=== PATIENT | female | born 1990 | race African-American/Black ===

== ENCOUNTER 2018-04-10 13:08 | Emergency (ER) | payer OTHER ==
[~2018-04-10] VITALS: Ht 157.5 cm; Wt 63.5 kg
[2018-04-10 13:21] VITALS: BP 106/66
--- NOTE | 2018-04-10 14:14 | Emergency Room Report ---
History of Present Illness General Chief Complaint: Pain Source: Patient Present Illness HPI 27-year-old female with significant past medical history of cigarette smoking who is A1, here complaining of 3 days of left-sided abdominal and pelvic pain radiating to her rectum and suprapubic area. Patient reports she had one episode of mild diarrhea 5 days ago denying nausea or vomiting, traveling outside the [place], and any blood in the stool. Her LMP was April 03 and regular patient is sexually active with 1 male partner not using condoms and on no control methods. She also complains of minor vaginal spotting however that has been resolved for the past 5 days. Denies vaginal ulcers, pruritus, pain, and denies abnormal vaginal discharge. Patient complains of dysuria denies hematuria. She reports that today her pain is intermittent and 5 out of 10 in the left lower quadrant pain. She has history of one selective denying spontaneous or ectopic in the past. Denies chest pain, SOB, chest pain, palpitaiton and all other associated symptoms. Allergies: Coded Allergies: No Known Allergies (Unverified , 04/10/18) Patient History Past Medical History: see triage record Past Surgical History: none Pertinent Family History: unable to obtain Now: No Immunizations: UTD Reviewed Nursing Documentation: PMH: Agreed; PSxH: Agreed Nursing Documentation-PMH Past Medical History: No Stated History Review of Systems All Other Systems: negative except mentioned in HPI Physical Exam Vital Signs Date Time Temp Pulse Resp B/P (MAP) Pulse Ox O2 Delivery O2 Flow Rate FiO2 04/10/18 13:14 98.2 103 18 106/66 98 Room Air Sp02 EP Interpretation: reviewed, normal General Appearance: normal inspection, well appearing, no apparent distress, GCS 15 Head: normocephalic, atraumatic Eyes: bilateral eye normal inspection, bilateral eye PERRL ENT: normal ENT inspection, hearing grossly normal, normal pharynx Neck: normal inspection, full range of motion, supple Respiratory: normal inspection, chest non-tender, lungs clear, no rhonchi, no retraction, no wheezing Cardiovascular #1: normal inspection, no edema, no gallop, no JVD, no murmur Gastrointestinal: normal bowel sounds, no mass, no peritonitis, no bruit, no guarding, tenderness - LLQ Genitourinary: no CVA tenderness Musculoskeletal: normal inspection, back normal, digits/nails normal, gait/ station normal, normal range of motion Neurologic: normal inspection, alert, oriented x3, responsive, talent development manager III-XII nml as tested Psychiatric: normal inspection, judgement/insight normal, memory normal Skin: normal inspection, normal color, no rash, warm/dry Lymphatic: normal inspection, no adenopathy, axilla node tender (R) Medical Decision Making PA Attestation all diagnosis and treatment plans were reviewed and discussed with my supervising physician Dr. Verde Diagnostic Impression: Primary Impression: UTI (urinary tract infection) Additional Impression: Appendicitis ER Course 27-year-old female with significant past medical history of cigarette smoking who is A1, here complaining of 3 days of left-sided abdominal and pelvic pain radiating to her rectum and suprapubic area. Patient reports she had one episode of mild diarrhea 5 days ago denying nausea or vomiting, traveling outside the [place], and any blood in the stool. Her LMP was April 03 and regular patient is sexually active with 1 male partner not using condoms and on no control methods. She also complains of minor vaginal spotting however that has been resolved for the past 5 days. Denies vaginal ulcers, pruritus, pain, and denies abnormal vaginal discharge. Patient complains of dysuria denies hematuria. She reports that today her pain is intermittent and 5 out of 10 in the left lower quadrant pain. She has history of one selective denying spontaneous or ectopic in the past. Denies chest pain, SOB, chest pain, palpitaiton and all other associated symptoms. Ddx considered but are not limited to ectopic , diverticulitis, ovarian cyst, peritonitis ,appendicitis Vital signs: are WNL, pt. is afebrile H&PE are most consistent with appendicitis UTI ORDERS: UA, urine test, abdominal and pelvic CT noncontrast, pelvic US , ED INTERVENTIONS: None required at this time. DISCHARGE: At this time pt. is stable for d/c to home. Will provide printed patient care instructions, and any necessary prescriptions. Care plan and follow up instructions have been discussed with the patient prior to discharge. pt refuses to be seen by Gen Surg as she wants to go home and do her paper for school. she wants to return to ED in 20-30 hrs. she understands the risks of leaving with inflamed appendix and understands taking abx for UTI can mask symptoms of appendicitis. pt signs AMA urine preg neg, leuk pos, blood in UA. CT/MRI/US Diagnostic Results CT/MRI/US Diagnostic Results : Imaging Test Ordered: pelvic US and abdominal CT Impression Exam: US PELVIS Comparison: None available FINDINGS: The uterus measures 7 x 4.3 x 3 cm. 4 mm endometrial echo complex. Complex appearing 1.1 x 0.7 x 1 cm nabothian cyst. The right ovary measures 3.8 x 4.2 x 2.1 cm with a volume of 17 cc. The left ovary measures 4.3 x 3.2 x 1.9 cm with a volume of 13.9 cc. There is evidence of bilateral vascular ovarian flow seen. No evidence of adnexal mass. Suggestion of trace pelvic free fluid. IMPRESSION: Study appears within limits. Exam: CT ABDOMEN & PELVIS Without Contrast Technique more: CTDI is 10.85 mGy and DLP is 534 mGy-cm. Technique more: One or more of the following dose reduction techniques were used : automated exposure control, adjustment of the mA and/or kV according to patient size, use of iterative reconstruction technique. Comparison: None available FINDINGS: The lung bases are clear. Abdominal solid organs, gallbladder and abdominal aorta appear within limits on noncontrast imaging. No bowel dilation or free air. The appendix measures up to 7 mm which appears borderline in size with some adjacent fat stranding, edema for example axial 106 and 107 although there is additional diffuse appearing lower abdomen and pelvic fat stranding, edema. This may represent an inflammatory/infectious pelvic process, clinically correlate. Suggestion of trace pelvic free fluid. The ovaries, uterus and collapsed bladder appear unremarkable on noncontrast imaging. IMPRESSION: The appendix measures up to 7 mm which appears borderline in size with some adjacent fat stranding, edema for example axial 106 and 107 although there is additional diffuse appearing lower abdomen and pelvic fat stranding, edema. This may represent an inflammatory/infectious pelvic process, clinically correlate. Suggestion of trace pelvic free fluid. Radiologist: Ranjeet Zuluaga M.D. Electronically Signed: 04/10/18 15:40 Phone: [phone] Last Vital Signs Date Time Temp Pulse Resp B/P (MAP) Pulse Ox O2 Delivery O2 Flow Rate FiO2 04/10/18 13:14 98.2 103 18 106/66 98 Room Air Disposition: AGAINST MEDICAL ADVICE Condition: Stable Scripts Ciprofloxacin* (CIPRO*) 500 Mg Tablet 500 MG PO BID for 7 Days, #14 TAB Prov: Carlos Parikh 04/10/18 Patient Instructions: Acute Urinary Retention, Female, [id number], Appendicitis, [id number] Additional Instructions: return to the ER if nausea, vomiting, severe abdominal pain. leaving the hospital with appendicitis is not adviced. . He understands the risks of leaving the hospital without being seen and examined by a general surgeon, patient wants to return within the next 20-30 minutes. pt understands that abx for UTI can mask symptoms from appedicitis and peritonitis Carlos Parikh Apr 10, 2018 14:14
[2018-04-10 14:47] LABS: APPEARANCE,URINE CLEAR; BILIRUBIN, URINE NEGATIVE (NEGATIVE); GLUCOSE, URINE (UA) NEGATIVE (NEGATIVE); KETONES,URINE 1+ (NEGATIVE); LEUKOCYTE ESTERASE ,URINE 2+ (NEGATIVE); NITRITE,URINE NEGATIVE (NEGATIVE); PH,URINE 6 (4.5-8.0); PROTEIN,URINE 2+ (NEGATIVE); UROBILINOGEN,URINE 1 MG/DL (0.0-1.0)
[2018-04-10 14:58] LABS: COLOR,URINE YELLOW
--- NOTE | 2018-04-10 15:33 | Diagnostic Imaging Report ---
History: PAIN Exam: US PELVIS Comparison: None available FINDINGS: The uterus measures 7 x 4.3 x 3 cm. 4 mm endometrial echo complex. Complex appearing 1.1 x 0.7 x 1 cm nabothian cyst. The right ovary measures 3.8 x 4.2 x 2.1 cm with a volume of 17 cc. The left ovary measures 4.3 x 3.2 x 1.9 cm with a volume of 13.9 cc. There is evidence of bilateral vascular ovarian flow seen. No evidence of adnexal mass. Suggestion of trace pelvic free fluid. IMPRESSION: Study appears within limits. Suggestion of trace pelvic free fluid.
--- NOTE | 2018-04-10 15:40 | Diagnostic Imaging Report ---
History: PAIN Exam: CT ABDOMEN + PELVIS Without Contrast Technique more: CTDI is 10.85 mGy and DLP is 534 mGy-cm. Technique more: One or more of the following dose reduction techniques were used: automated exposure control, adjustment of the mA and/or kV according to patient size, use of iterative reconstruction technique. Comparison: None available FINDINGS: The lung bases are clear. Abdominal solid organs, gallbladder and abdominal aorta appear within limits on noncontrast imaging. No bowel dilation or free air. The appendix measures up to 7 mm which appears borderline in size with some adjacent fat stranding, edema for example axial 106 and 107 although there is additional diffuse appearing lower abdomen and pelvic fat stranding, edema. This may represent an inflammatory/infectious pelvic process, clinically correlate. Suggestion of trace pelvic free fluid. The ovaries, uterus and collapsed bladder appear unremarkable on noncontrast imaging. IMPRESSION: The appendix measures up to 7 mm which appears borderline in size with some adjacent fat stranding, edema for example axial 106 and 107 although there is additional diffuse appearing lower abdomen and pelvic fat stranding, edema. This may represent an inflammatory/infectious pelvic process, clinically correlate. Suggestion of trace pelvic free fluid.
[2018-04-10] MEDS ORDERED: CIPRO500 MG PO (16:08)
[2018-04-10 16:09] VITALS: BP 106/66
[2018-04-11] MEDS ORDERED: BACTRIM DS TAB1 EAC1 ORAL (14:07)
[2018-04-11] MEDS ORDERED: IBUPROFEN600 MG ORAL (14:07)
== END 2018-04-10 15:00 | disposition home or self-care (01) ==
LOC: EMR 13:45
DX: N39.0 Urinary tract infection, site not specified (principal); K37 Unspecified appendicitis; F17.210 Nicotine dependence, cigarettes, uncomplicated; R19.7 Diarrhea, unspecified
CPT/HCPCS: 74176; 76830; 76856; 81001; 81025; 87086; 99284

== ENCOUNTER 2018-04-11 12:39 | Emergency (ER) | payer OTHER ==
[~2018-04-11] VITALS: Ht 160 cm; Wt 63.5 kg
[~2018-04-11 12:39] MED LIST: CIPRO500 MG PO
--- NOTE | 2018-04-11 13:09 | Emergency Room Report ---
History of Present Illness General Chief Complaint: Abdominal Pain Source: Patient Present Illness [facility] Patient presents for continued evaluation She was here yesterday with CT imaging showing concerning findings of possible appendicitis Patient could not stay at this time and left AGAINST MEDICAL ADVICE And has returned reports of the pain is somewhat improved from previous however still present Points to the right lower quadrant Denies any vomiting or diarrhea patient reports that she had chips earlier today Denies any neck pain or photophobia denies any obvious fevers Allergies: Coded Allergies: No Known Allergies (Unverified , 04/10/18) Patient History Past Medical History: see triage record Pertinent Family History: none Last Menstrual Period: 04/03/18 Now: No Reviewed Nursing Documentation: PMH: Agreed; PSxH: Agreed Nursing Documentation-PMH Past Medical History: No History, Except For Review of Systems All Other Systems: negative except mentioned in HPI Physical Exam Vital Signs Date Time Temp Pulse Resp B/P (MAP) Pulse Ox O2 Delivery O2 Flow Rate FiO2 04/11/18 12:52 98.2 84 18 103/66 95 Room Air Sp02 EP Interpretation: reviewed, normal General Appearance: well appearing, no apparent distress Head: normocephalic, atraumatic Eyes: bilateral eye PERRL, bilateral eye EOMI ENT: hearing grossly normal, normal pharynx, TMs + canals normal, uvula midline Neck: full range of motion, supple, no meningismus, no bony tend Respiratory: lungs clear, normal breath sounds, no rhonchi, no respiratory distress, no retraction, no accessory muscle use Cardiovascular #1: normal peripheral pulses, regular rate, rhythm, no edema, no gallop, no JVD, no murmur Gastrointestinal: normal bowel sounds, soft, no mass, no organomegaly, non- distended, no guarding, no hernia, no pulsatile mass, no rebound, tenderness - Palpated right lower quadrant Genitourinary: no CVA tenderness Musculoskeletal: normal inspection Neurologic: oriented x3, responsive, pattern grader III-XII nml as tested, motor strength/ tone normal, sensory intact Psychiatric: mood/affect normal Skin: normal color, no rash, warm/dry, palpation normal Lymphatic: normal inspection, no adenopathy Medical Decision Making Diagnostic Impression: Primary Impression: Abdominal pain Qualified Codes: R10.30 - Lower abdominal pain, unspecified Additional Impression: UTI (urinary tract infection) ER Course With the patient's history and examination, multiple differentials considered, including but not limited to , ectopic , ovarian torsion, gastritis, cholecystitis, pancreatitis, appendicitis Patient's white blood cell count is 10.9 Patient had shown signs of UTI on previous visit Dr. Aviles at bedside and has consulted on the patient please for to his note for full specifics However at this time does not feel that the patient's findings are consistent with appendicitis Patient also reports that she feels mildly improved from yesterday Patient will have outpatient attempt And return with any changes in symptoms Labs Test 04/11/18 13:30 White Blood Count 10.9 K/UL (4.8-10.8) Red Blood Count 3.99 M/UL (4.20-5.40) Hemoglobin 13.4 G/DL (12.0-16.0) Hematocrit 39.3 % (37.0-47.0) Mean Corpuscular Volume 99 FL (80-99) Mean Corpuscular Hemoglobin 33.7 PG (27.0-31.0) Mean Corpuscular Hemoglobin Concent 34.1 G/DL (32.0-36.0) Red Cell Distribution Width 10.7 % (11.6-14.8) Platelet Count 261 K/UL (150-450) Mean Platelet Volume 5.7 FL (6.5-10.1) Neutrophils (%) (Auto) 72.2 % (45.0-75.0) Lymphocytes (%) (Auto) 22.2 % (20.0-45.0) Monocytes (%) (Auto) 4.5 % (1.0-10.0) Eosinophils (%) (Auto) 0.5 % (0.0-3.0) Basophils (%) (Auto) 0.6 % (0.0-2.0) Last Vital Signs Date Time Temp Pulse Resp B/P (MAP) Pulse Ox O2 Delivery O2 Flow Rate FiO2 04/11/18 12:52 98.2 84 18 103/66 95 Room Air Status: improved Disposition: HOME, SELF-CARE Condition: Improved Scripts Trimethoprim/Sulfamethoxazole 160/800* (BACTRIM DS TABLET*) 1 Each Tablet 1 TAB ORAL Q12H, #14 TAB 0 Refills Prov: Yoana Walton DO 04/11/18 Ibuprofen* (MOTRIN*) 600 Mg Tablet 600 MG ORAL Q8H PRN for For Pain, #20 TAB 0 Refills Prov: Yoana Walton DO 04/11/18 Additional Instructions: Patient is provided with the discharge instructions notified to follow up with primary doctor in the next 2-3 days otherwise return to the er with any worsening symptoms. Please note that this report is being documented using DRAGON technology. This can lead to erroneous entry secondary to incorrect interpretation by the dictating instrument. Yoana Walton DO Apr 11, 2018 13:09
[2018-04-11 13:34] VITALS: BP 86/50
[2018-04-11 14:05] LABS: BASOPHILS % (AUTO) 0.6 % (0.0-2.0); EOSINOPHILS % (AUTO) 0.5 % (0.0-3.0); HEMATOCRIT 39.3 % (37.0-47.0); HEMOGLOBIN 13.4 G/DL (12.0-16.0); LYMPHOCYTES % (AUTO) 22.2 % (20.0-45.0); MEAN CORPUSCULAR VOLUME 99 FL (80-99); MONOCYTES % (AUTO) 4.5 % (1.0-10.0); NEUTROPHILS % (AUTO) 72.2 % (45.0-75.0); PLATELET COUNT 261 K/UL (150-450); RED BLOOD COUNT 3.99 M/UL (4.20-5.40); RED CELL DISTRIBUTION WIDTH 10.7 % (11.6-14.8); WHITE BLOOD COUNT 10.9 K/UL (4.8-10.8)
[2018-04-11] MEDS ORDERED: BACTRIM DS TAB1 EAC1 ORAL (14:07)
[2018-04-11] MEDS ORDERED: IBUPROFEN600 MG ORAL (14:07)
--- NOTE | 2018-04-11 14:12 | Consultation ---
History of Present Illness General Date patient seen: Apr 11, 2018 Chief Complaint: Abdominal Pain Reason for Consultation: abdominal pain Present Illness HPI 27 year old otherwise healthy female presented to ED with complaints of lower abdominal pain. Came in yesterday with similar symptoms and CT scan with 7mm appendix and some inflammation around. Left prior to labs and completion of work up. 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 States 2-3 days of lower abdominal pain with diarrhea. states feels as if "intestines are falling out of her rectum." watery diarrhea. no n/v/f/c. pain mainly lower abdomen right/ pelvic/left. Surgery called to evaluate. patient seen, chart reviewed, patient examined. currently states pain better today than yesterday. Allergies: Coded Allergies: No Known Allergies (Unverified , 04/10/18) Medication History Scheduled Ciprofloxacin* (Cipro*), 500 MG PO BID Trimethoprim/Sulfamethoxazole 160/800* (Bactrim Ds Tablet*), 1 TAB ORAL Q12H Scheduled PRN Ibuprofen* (Motrin*), 600 MG ORAL Q8H PRN for For Pain Patient History History Provided By: Patient, Medical Record, PMD Healthcare decision maker Resuscitation status Advanced Directive on File Past Medical/Surgical History Past Medical/Surgical History: (1) Abdominal pain (2) UTI (urinary tract infection) Review of Systems All Other Systems: negative except mentioned in HPI Physical Exam General Appearance: no apparent distress, alert Lines, tubes and drains: peripheral HEENT: atraumatic, mucous membranes moist Neck: normal inspection Respiratory/Chest: normal breath sounds, no respiratory distress, no accessory muscle use Cardiovascular/Chest: regular rhythm Abdomen: normal bowel sounds, soft, no organomegaly, no mass, guarding, tender Extremities: normal inspection Skin Exam: warm/dry Neurologic: alert, oriented x 3 Last 24 Hour Vital Signs Date Time Temp Pulse Resp B/P (MAP) Pulse Ox O2 Delivery O2 Flow Rate FiO2 04/11/18 13:34 98.2 78 18 86/50 99 Room Air 04/11/18 13:34 84 18 Room Air 04/11/18 12:52 98.2 84 18 103/66 95 Room Air Laboratory Tests Test 04/11/18 13:30 White Blood Count Pending Red Blood Count Pending Hemoglobin Pending Hematocrit Pending Mean Corpuscular Volume Pending Mean Corpuscular Hemoglobin Pending Mean Corpuscular Hemoglobin Concent Pending Red Cell Distribution Width Pending Platelet Count Pending Mean Platelet Volume Pending Neutrophils (%) (Auto) Pending Lymphocytes (%) (Auto) Pending Monocytes (%) (Auto) Pending Eosinophils (%) (Auto) Pending Basophils (%) (Auto) Pending Sodium Level Pending Potassium Level Pending Chloride Level Pending Carbon Dioxide Level Pending Blood Urea Nitrogen Pending Creatinine Pending Estimat Glomerular Filtration Rate Pending Glucose Level Pending Calcium Level Pending Total Bilirubin Pending Aspartate Amino Transf (AST/SGOT) Pending Alanine Aminotransferase (ALT/SGPT) Pending Alkaline Phosphatase Pending Total Protein Pending Albumin Pending Globulin Pending Height (Feet): 5 Height (Inches): 3.00 Weight (Pounds): 140 Medications Current Medications Medications (Trade) Dose Ordered Sig/Cayden Route PRN Reason Start Time Stop Time Status Last Admin Dose Admin Sodium Chloride 1,000 ml @ 999 mls/hr Q1H1M ONCE IV 04/11/18 13:15 04/11/18 14:15 04/11/18 13:23 Assessment/Plan Problem List: (1) Abdominal pain Assessment & Plan: 27F with lower abdominal pain. afebrile, HD stable, labs pending. on exam has both right lower, left lower, and pelvic abdominal discomfort. +diarrhea. no n/v/f/c. CT appendix measures up to 7 mm which appears borderline in size with some adjacent fat stranding, edema for example axial 106 and 107 although there is additional diffuse appearing lower abdomen and pelvic fat stranding, edema. This may represent an inflammatory/infectious pelvic process, clinically correlate -given history, exam, and above findings differential includes UTI, PID, possibly but unlikely appendicitis -discussed findings with patient. discussed plan of care. -patient is reliable and stable. can safely be d/c if labs normal with outpatient follow up. return if worsening condition. -if labs abnormal or patient does not feel comfortable with outpatient follow up , can admit for observation overnight thank you Addendum: labs noted. wbc 10.9. exam same. okay to d/c. f/u with pcp return if worsening condition ICD Codes: R10.9 - Unspecified abdominal pain SNOMED: [id number] Qualifiers: Qualified Codes: R10.30 - Lower abdominal pain, unspecified Status: stable Vladimir Aviles Apr 11, 2018 14:12
[2018-04-11 14:24] VITALS: BP 86/50
[2018-04-11 14:26] LABS: ANION GAP 11 mmol/L (5-15); BLOOD UREA NITROGEN 7 mg/dL (7-18); CALCIUM 9.2 MG/DL (8.5-10.1); CARBON DIOXIDE 23 MMOL/L (21-32); CHLORIDE 104 MMOL/L (98-107); CREATININE 0.8 MG/DL (0.55-1.30); POTASSIUM 3.8 MMOL/L (3.5-5.1); SODIUM 138 MMOL/L (136-145)
[2018-04-11 14:31] LABS: ALANINE AMINOTRANSFERASE 86 U/L (12-78); ALBUMIN 3.6 G/DL (3.4-5.0); ALBUMIN/GLOBULIN RATIO 0.8 (1.0-2.7); ALKALINE PHOSPHATASE 57 U/L (46-116); ASPARTATE AMINO TRANSFERASE 40 U/L (15-37); BILIRUBIN,TOTAL 0.3 MG/DL (0.2-1.0)
== END 2018-04-11 14:24 | disposition home or self-care (01) ==
LOC: EMR 13:24
DX: N39.0 Urinary tract infection, site not specified (principal); R10.30 Lower abdominal pain, unspecified
CPT/HCPCS: 36415; 80053; 85025; 96360; 99284

== ENCOUNTER 2018-12-12 18:23 | Emergency (ER) | payer MEDICAID, OTHER ==
[~2018-12-12] VITALS: Ht 157.5 cm; Wt 59.0 kg
[~2018-12-12 18:23] MED LIST changes: +BACTRIM DS TAB1 EAC1 ORAL; +IBUPROFEN600 MG ORAL
--- NOTE | 2018-12-12 18:30 | NUR ---
ED Nurse Note: Saad walked into ED c/o right upper abdomen pain, reports a cramping pain that has been an on going issue for the past 2 days, patient reports of multiple episodes of vomiting. patient is alert and oriented x4. ambulatory with a steady gait, VSS
[2018-12-12] MEDS ORDERED: NKM (18:31)
[2018-12-12 18:32] VITALS: BP 113/79
--- NOTE | 2018-12-12 19:10 | Emergency Room Report ---
History of Present Illness General Chief Complaint: Abdominal Pain Source: Patient Present Illness HPI 28-year-old female presents to the emergency department complaining of 8 out of 10 severity gastric and right upper quadrant abdominal pain with associated nausea, vomiting and loose stools x1 week. Patient reports on average about 3- 4 loose stools and episodes of vomiting per day she reports decrease in appetite she states her abdominal pain is her primary symptom she also states she is recently been having coughing and upper respiratory symptoms. She denies fevers or chills denies recent travel or ill contacts. Patient reports low suspicion of and states that she just had her period 3 days ago she states that she does have very light periods only last a day or 2. Patient denies dysuria, hematuria, urinary frequency, vomiting blood or having blood in the stool or black tarry stools. No aggravating or relieving factors. Patient denies recent antibiotic use. Allergies: Coded Allergies: No Known Allergies (Unverified , 04/10/18) Patient History Past Medical History: see triage record Past Surgical History: none Pertinent Family History: none Last Menstrual Period: 12/09/18 Now: No Reviewed Nursing Documentation: PMH: Agreed; PSxH: Agreed Nursing Documentation-PMH Past Medical History: No Stated History Review of Systems All Other Systems: negative except mentioned in HPI Physical Exam Vital Signs Date Time Temp Pulse Resp B/P (MAP) Pulse Ox O2 Delivery O2 Flow Rate FiO2 12/12/18 18:27 99.1 80 18 113/79 (90) 96 12/12/18 18:47 Room Air Sp02 EP Interpretation: reviewed, normal General Appearance: no apparent distress, alert, GCS 15, non-toxic Head: normocephalic, atraumatic Eyes: bilateral eye normal inspection, bilateral eye PERRL ENT: hearing grossly normal, normal voice Neck: full range of motion Respiratory: lungs clear, normal breath sounds, speaking full sentences Cardiovascular #1: regular rate, rhythm Gastrointestinal: normal bowel sounds, non tender, soft, non-distended, no guarding, no hernia Rectal: deferred Genitourinary: normal inspection, no CVA tenderness Musculoskeletal: back normal, gait/station normal, normal range of motion, non- tender Neurologic: alert, oriented x3, responsive, motor strength/tone normal, sensory intact, speech normal, grossly normal Psychiatric: judgement/insight normal Lymphatic: no adenopathy Medical Decision Making PA Attestation Dr. Verde is my supervising Physician whom patient management has been discussed with. Diagnostic Impression: Primary Impression: Abdominal pain Qualified Codes: R10.11 - Right upper quadrant pain ER Course 28-year-old female presents to the emergency department complaining of 8 out of 10 severity gastric and right upper quadrant abdominal pain with associated nausea, vomiting and loose stools x1 week. Patient reports on average about 3- 4 loose stools and episodes of vomiting per day she reports decrease in appetite she states her abdominal pain is her primary symptom she also states she is recently been having coughing and upper respiratory symptoms. She denies fevers or chills denies recent travel or ill contacts. Patient reports low suspicion of and states that she just had her period 3 days ago she states that she does have very light periods only last a day or 2. Patient denies dysuria, hematuria, urinary frequency, vomiting blood or having blood in the stool or black tarry stools. No aggravating or relieving factors. Patient denies recent antibiotic use. Ddx considered but are not limited to Diverticulitis, acute appendicitis, diarrhea,UC, PUD, GE, pancreatitis, gallstone, ovarian torsion,/ ectopic , PID tubo-ovarian abscess. just to name a few Vital signs: are WNL, pt. is afebrile H&PE are most consistent with Viral GE, Pt. NAD, non-toxic in appearance, No Clinical evidence of significant dehydration. ORDERS: -CBC, CMP, LIPASE: unremarkable -UA: unremarkable -URINE HCG: negative ED INTERVENTIONS: -PO Zofran 4mg. / Bentyl, Pepcid & IV Fluids --I do not identify an emergent condition at this time. With current presentation, pt. is stable for close outpatient follow up and conservative treatment. D/w pt. to return promptly to ED with worsening or new symptoms.- Pt. verbalizes' understanding and agreement with proposed treatment plan.proposed treatment plan. DISCHARGE: At this time pt. is stable for d/c to home. Will provide printed patient care instructions, and any necessary prescriptions. Care plan and follow up instructions have been discussed with the patient prior to discharge. Labs Test 12/12/18 19:00 White Blood Count 8.1 K/UL (4.8-10.8) Red Blood Count 4.00 M/UL (4.20-5.40) Hemoglobin 14.3 G/DL (12.0-16.0) Hematocrit 39.0 % (37.0-47.0) Mean Corpuscular Volume 98 FL (80-99) Mean Corpuscular Hemoglobin 35.8 PG (27.0-31.0) Mean Corpuscular Hemoglobin Concent 36.6 G/DL (32.0-36.0) Red Cell Distribution Width 10.8 % (11.6-14.8) Platelet Count 298 K/UL (150-450) Mean Platelet Volume 4.8 FL (6.5-10.1) Neutrophils (%) (Auto) 61.0 % (45.0-75.0) Lymphocytes (%) (Auto) 31.2 % (20.0-45.0) Monocytes (%) (Auto) 6.3 % (1.0-10.0) Eosinophils (%) (Auto) 1.0 % (0.0-3.0) Basophils (%) (Auto) 0.6 % (0.0-2.0) Urine Color Yellow Urine Appearance Clear Urine pH 6.5 (4.5-8.0) Urine Specific [place] 1.010 (1.005-1.035) Urine Protein 1+ (NEGATIVE) Urine Glucose (UA) Negative (NEGATIVE) Urine Ketones 1+ (NEGATIVE) Urine Blood 2+ (NEGATIVE) Urine Nitrite Negative (NEGATIVE) Urine Bilirubin Negative (NEGATIVE) Urine Urobilinogen Normal MG/DL (0.0-1.0) Urine Leukocyte Esterase 1+ (NEGATIVE) Urine RBC 5-10 /HPF (0 - 2) Urine WBC 2-4 /HPF (0 - 2) Urine Squamous Epithelial Cells Few /LPF (NONE/OCC) Urine Bacteria Few /HPF (NONE) Urine HCG, Qualitative Negative (NEGATIVE) Sodium Level 139 MMOL/L (136-145) Potassium Level 3.4 MMOL/L (3.5-5.1) Chloride Level 103 MMOL/L (98-107) Carbon Dioxide Level 27 MMOL/L (21-32) Anion Gap 9 mmol/L (5-15) Blood Urea Nitrogen 6 mg/dL (7-18) Creatinine 0.9 MG/DL (0.55-1.30) Estimat Glomerular Filtration Rate > 60 mL/min (>60) Glucose Level 91 MG/DL (74-106) Calcium Level 9.1 MG/DL (8.5-10.1) Total Bilirubin 0.3 MG/DL (0.2-1.0) Aspartate Amino Transf (AST/SGOT) 88 U/L (15-37) Alanine Aminotransferase (ALT/SGPT) 87 U/L (12-78) Alkaline Phosphatase 53 U/L (46-116) Total Protein 7.0 G/DL (6.4-8.2) Albumin 3.6 G/DL (3.4-5.0) Globulin 3.4 g/dL Albumin/Globulin Ratio 1.1 (1.0-2.7) Lipase 177 U/L (73-393) Last Vital Signs Date Time Temp Pulse Resp B/P (MAP) Pulse Ox O2 Delivery O2 Flow Rate FiO2 12/12/18 18:47 78 16 Room Air 12/12/18 18:27 99.1 113/79 (90) 96 Disposition: HOME, SELF-CARE Condition: Stable Scripts Ondansetron Odt* (ZOFRAN ODT*) 4 Mg Tab.rapdis 4 MG BC EVERY 8 HOURS PRN for Nausea & Vomiting, #10 TAB 0 Refills Prov: Sumaya Liu 12/12/18 Ranitidine Hcl* (ZANTAC*) 150 Mg Tablet 150 MG ORAL TWICE A DAY for 7 Days, #14 TAB Prov: Sumaya Liu 12/12/18 Simethicone* (SIMETHICONE*) 80 Mg Tab.chew 80 MG ORAL Q8H PRN for For Pain, #20 TAB 0 Refills Prov: Sumaya Liu 12/12/18 Patient Instructions: Abdominal Pain, Adult Additional Instructions: Take medications as directed. Follow up with a Primary Care Provider in 3-5 days, even if your symptoms have resolved. --Please review list of primary care clinics, if you do not already have a primary care provider Return sooner to ED if new symptoms occur, or current symptoms become worse. - Please note that this Emergency Department Report was dictated using [employer] hoist operator technology software, occasionally this can lead to erroneous entry secondary to interpretation by the dictation equipment. Sumaya Liu Dec 12, 2018 19:10
[2018-12-12 19:35] LABS: APPEARANCE,URINE CLEAR; BASOPHILS % (AUTO) 0.6 % (0.0-2.0); BILIRUBIN, URINE NEGATIVE (NEGATIVE); GLUCOSE, URINE (UA) NEGATIVE (NEGATIVE); HEMOGLOBIN 14.3 G/DL (12.0-16.0); KETONES,URINE 1+ (NEGATIVE); LEUKOCYTE ESTERASE ,URINE 1+ (NEGATIVE); LYMPHOCYTES % (AUTO) 31.2 % (20.0-45.0); MEAN CORPUSCULAR VOLUME 98 FL (80-99); MONOCYTES % (AUTO) 6.3 % (1.0-10.0); NITRITE,URINE NEGATIVE (NEGATIVE); PH,URINE 6.5 (4.5-8.0); PLATELET COUNT 298 K/UL (150-450); PROTEIN,URINE 1+ (NEGATIVE); RED CELL DISTRIBUTION WIDTH 10.8 % (11.6-14.8); UROBILINOGEN,URINE NORMAL MG/DL (0.0-1.0); WHITE BLOOD COUNT 8.1 K/UL (4.8-10.8)
[2018-12-12 19:37] LABS: COLOR,URINE YELLOW
[2018-12-12 19:39] LABS: ANION GAP 9 mmol/L (5-15); BLOOD UREA NITROGEN 6 mg/dL (7-18); CALCIUM 9.1 MG/DL (8.5-10.1); CARBON DIOXIDE 27 MMOL/L (21-32); CHLORIDE 103 MMOL/L (98-107); CREATININE 0.9 MG/DL (0.55-1.30); POTASSIUM 3.4 MMOL/L (3.5-5.1); SODIUM 139 MMOL/L (136-145)
[2018-12-12 19:45] LABS: ALANINE AMINOTRANSFERASE 87 U/L (12-78); ALBUMIN 3.6 G/DL (3.4-5.0); ALBUMIN/GLOBULIN RATIO 1.1 (1.0-2.7); ALKALINE PHOSPHATASE 53 U/L (46-116); ASPARTATE AMINO TRANSFERASE 88 U/L (15-37); BILIRUBIN,TOTAL 0.3 MG/DL (0.2-1.0)
[2018-12-12] MEDS ORDERED: Mylanta II UD 30ml ORAL ONE (20:00)
[2018-12-12] MEDS ORDERED: Dicyclomine 10mg Cap ORAL ONE (20:00)
[2018-12-12] MEDS ORDERED: ONDANSETRON ODT4 MG BC (20:06)
[2018-12-12] MEDS ORDERED: ZANTAC150 MG ORAL (20:06)
[2018-12-12] MEDS ORDERED: SIMETHICONE80 MG ORAL (20:06)
[2018-12-12 20:10] VITALS: BP 120/75
--- NOTE | 2018-12-12 20:10 | NUR ---
ER DISCHARGE NOTE: Patient is cleared to be discharged per ERMD, pt is aox4, on room air, with stable vital signs. pt was given dc and prescription instructions, pt was able to verbalize understanding, pt id band and iv site removed without complications. pt is able to ambulate with steady gait. pt took all belongings. Patient refused additional medications due to her "feeling better"
== END 2018-12-12 20:10 | disposition home or self-care (01) ==
LOC: EMR 19:55
DX: R10.11 Right upper quadrant pain (principal)
CPT/HCPCS: 36415; 80053; 81003; 81025; 83690; 85025; 96361; 96374; 99284; J2405